=== PATIENT | female | born 1965 | race Caucasian/White ===

== ENCOUNTER → 2018-12-17 | Outpatient (CLI) | payer OTHER ==
--- NOTE | 2018-12-17 08:41 | Diagnostic Imaging Report ---
PROCEDURE: CT abdomen and pelvis without contrast. TECHNIQUE: Multiple contiguous axial images were obtained through the abdomen and pelvis without the use of intravenous contrast. Auto Exposure Controls were utilized during the CT exam to meet ALARA standards for radiation dose reduction. INDICATION: Hematuria. No prior studies are available for comparison. The lung bases are clear. No focal liver mass is identified. The gallbladder is unremarkable. Visualized pancreas and spleen are unremarkable. No adrenal mass is detected. Kidneys do not show evidence of calculi. There is no hydronephrosis identified. No definite ureteral calculi are seen. No bladder calculi are detected. The abdominal aorta is normal in caliber. No aneurysm is detected. Visualized small and large bowel loops are normal caliber. No obstruction is seen. There is a moderate amount of stool throughout the colon. No free fluid or fluid collection is identified. A cystic mass in the left adnexa is identified measuring 3.2 cm, suggestive of an ovarian cyst. The bony structures are nonacute. IMPRESSION: 1. No evidence of urinary tract calculi or hydronephrosis. 2. Left adnexal cyst, likely ovarian. This could be further evaluated with pelvic sonography for better characterization. 3. Moderate stool suggestive of constipation. No acute feature is detected. Dictated by: Dictated on workstation # [id number]
== END ==
LOC: RAD 06:46
PROVIDERS: ATTEND Urology
DX: N83.8 Other noninflammatory disorders of ovary, fallopian tube and broad ligament (principal); R31.0 Gross hematuria
CPT/HCPCS: 74176

== ENCOUNTER → 2018-12-21 | Outpatient (CLI) | payer OTHER ==
--- NOTE | 2018-12-21 13:49 | Diagnostic Imaging Report ---
PROCEDURE: US Non-OB pelvis comp/trans. TECHNIQUE: Multiple realtime grayscale images were obtained of the pelvis in various projections endovaginally. Transabdominal imaging was also performed. INDICATION: Left ovarian cyst noted on recent CT. The study is performed for further characterization. COMPARISON: Correlation is made with CT study from 12/17/2018. FINDINGS: The uterus is surgically absent. Right ovary is not visualized. Left ovary measures 5.2 x 4.2 x 3.3 cm. There is a fairly simple-appearing cyst in the left ovary measuring 4.3 x 3.4 x 3.8 cm. No internal vascularity is seen. This correlates with the cyst noted on CT. No free fluid is seen. IMPRESSION: Simple cyst in the left ovary, as described. Dictated by: Dictated on workstation # [id number]
== END ==
LOC: RAD 12:30
PROVIDERS: ATTEND Urology
DX: N83.202 Unspecified ovarian cyst, left side (principal)
CPT/HCPCS: 76830; 76856

== ENCOUNTER 2019-01-15 05:40 | Outpatient (CLI) | payer OTHER ==
[~2019-01-15] VITALS: Ht 160 cm; Wt 56.4 kg
[2019-01-15] MEDS ORDERED: MIRA50TA PO (10:46)
[2019-01-15] MEDS ORDERED: ZOLP10TA5 PO (10:46)
[2019-01-15] MEDS ORDERED: RIZA10TA23 PO (10:46)
[2019-01-15] MEDS ORDERED: LISI10TA2 PO (10:46)
[2019-01-15] MEDS ORDERED: ATOR20TA66 PO (10:46)
[2019-01-15] MEDS ORDERED: TRM50T PO ×2 (10:46→13:01)
[2019-01-15] MEDS ORDERED: LAMO100T69 PO (10:46)
[2019-01-15] MEDS ORDERED: MELO15TA14 PO (13:00)
== END 2019-01-15 10:56 | disposition home or self-care (01) ==
LOC: PREOP 05:40
PROVIDERS: ATTEND Urology
DX: Z01.818 Encounter for other preprocedural examination (principal)

== ENCOUNTER 2019-01-16 05:54 | Day surgery (SDC) | payer OTHER ==
--- NOTE | 2019-01-15 13:03 | NUR ---
CALLED [facility] IN [place] FOR A LIST OF RECENTLY FILLED MEDICATIONS. MIGUEL FILLED: 01-08-19 TRAMADOL 50MG 2 Q8H PRN (TAKES 2 AM AND PM SCHEDULED AND 2 MID DAY NEEDED) 01-08-19 AMBIEN 10MG HS 01-07-19 ATORVASTATIN 20MG HS 01-07-19 LISINOPRIL 10MG DAILY 01-06-19 MOBIC 15MG DAILY 01-04-19 MAXALT 10MG DAILY PRN Q2 HOURS MAX 30MG IN 24 HOURS 11-09-18 OXYBUTYNIN ER 5MG DAILY #60 (STATES THIS CHANGED TO MYRBETRIQ, SAMPLES) JULY 2018- LAMOTRIGINE 100MG BID #60 (NOTED PAST DUE FILL DATE, SHE STATES SHE HAD A SUPPLY ON HAND AT HOME, DOES TAKE EVERYDAY) SHE STATES DR. HO GAVE HER SAMPLES OF THE MYRBETRIQ, SHE TAKES IT DAILY. SHE DOES NOT TAKE ANYTHING OTC. Addendum: 01/15/19 at 1420 by BRANDO PEREIRA [facility] PATIENT CALLED ME BACK AT THIS TIME TO SAY SHE IS NO LONGER TAKING THE LAMICTAL. SHE STATES WHEN I CALLED HER EARLIER HER WAS LISTENING AND SHE DID NOT WANT HIM TO KNOW SHE STOPPED IT. I REMOVED IT FROM THE MED REC AT THIS TIME.
[~2019-01-16] VITALS: Ht 160 cm; Wt 56.4 kg
[2019-01-16] VITALS (21 sets, daily range): BP systolic 85–127; BP diastolic 50–71
[~2019-01-16 05:54] MED LIST: ATOR20TA66 PO; LAMO100T69 PO; LISI10TA2 PO; MELO15TA14 PO; MIRA50TA PO; RIZA10TA23 PO; TRAM50TA2 PO; ZOLP10TA5 PO
[2019-01-16] MEDS ORDERED: cefTRIAXone 1,000 MG IV (ROCEPHIN) VIAL ONE (06:35)
[2019-01-16] MEDS ORDERED: WATER (STERILE) FOR INJECTION 10 ML ONE (06:35)
[2019-01-16] MEDS ORDERED: ONDANSETRON 4 MG/2 ML (SDV) Z0FRAN IV ONE (06:45)
[2019-01-16] MEDS ORDERED: SCOPOLAMINE 1.5 MG (TRANSDERM-SCOP) PATCH TOP ONE (06:45)
[2019-01-16] MEDS ORDERED: FAMOTIDINE 20MG/2ML IV (PEPCID) IV ONE (06:45)
[2019-01-16] MEDS ORDERED: MIDAZOLAM 2 MG/2 ML (VERSED) VIAL ONE (07:00)
[2019-01-16] MEDS ORDERED: cefTRIAXone FOR IV USE 1,000 MG in WATER (STERILE) FOR INJECTION 10 ML IV ONE (07:00)
[2019-01-16] MEDS ORDERED: fentaNYL INJECTION 100 MCG/2 ML AMP ONE (07:00)
[2019-01-16] MEDS ORDERED: SCOPOLAMINE 1.5 MG (TRANSDERM-SCOP) PATCH ONE (07:04)
[2019-01-16] MEDS ORDERED: FAMOTIDINE 20MG/2ML IV (PEPCID) ONE (07:04)
[2019-01-16] MEDS ORDERED: ONDANSETRON 4 MG/2 ML (SDV) Z0FRAN ONE ×2 (07:04→07:31)
--- NOTE | 2019-01-16 07:11 | Progress Note-Pre Operative ---
Pre-Operative Progress Note H&P Reviewed The H&P was reviewed, patient examined and no changes noted. Date Seen by Provider: Jan 16, 2019 Time Seen by Provider: 07:10 Date H&P Reviewed: Jan 16, 2019 Time H&P Reviewed: 07:10 Pre-Operative Diagnosis: CYSTOCELE AND IVAN ESPERANZA HO MD Jan 16, 2019 07:11 POS
[2019-01-16] MEDS ORDERED: ESTRADIOL VAGINAL CREAM 42.5 GM (ESTRACE) VG ONE (07:15)
[2019-01-16] MEDS: LACTATED RINGERS 1,000 ML IV PRN ×2 (07:15→07:59)
[2019-01-16] MEDS ORDERED: ESTROGENS CONJ. CREAM 30 GM (PREMARIN) TUBE ONE (07:15)
[2019-01-16] MEDS ORDERED: LIDOCAINE/EPI 1%-1:100,000 (XYLOCAINE) 20ML ONE (07:16)
[2019-01-16] MEDS ORDERED: proPOfol 200 MG/20 ML (DIPRIVAN) VIAL IV ONE (07:31)
[2019-01-16] MEDS ORDERED: LIDOCAINE PF 2% 5 ML (XYLOCAINE) VIAL ONE (07:31)
[2019-01-16] MEDS ORDERED: DEXAMETHASONE 10 MG/ML (DECADRON) 1 ML VIAL ONE (07:31)
[2019-01-16] MEDS ORDERED: SEVOFLURANE (ULTANE) 15 ML INHAL SOLN ONE (08:09)
[2019-01-16] MEDS ORDERED: ROCURONIUM 10 MG/ML 5 ML SYRINGE IV ONE (08:10)
[2019-01-16] MEDS ORDERED: fentaNYL INJECTION 100 MCG/2 ML AMP IVP ONE (08:15)
[2019-01-16] MEDS ORDERED: morphine INJ 10 MG/ML 1ML (SYR OR VIAL) IVP ONE (08:15)
[2019-01-16] MEDS ORDERED: ONDANSETRON 4 MG/2 ML (SDV) Z0FRAN IVP PRN (08:15)
[2019-01-16] MEDS ORDERED: MEPERIDINE (DEMEROL) INJ 50 MG/ML IVP ONE (08:15)
[2019-01-16] MEDS ORDERED: HYDROcodone/APAP 10 MG/325 MG (LORTAB) TAB PO PRN (08:30)
--- NOTE | 2019-01-16 08:30 | Progress Note-Post Operative ---
Post-Operative Progess Note Surgeon (s)/Mathematics Academic Chair (s) Surgeon ESPERANZA HO MD Mathematics Academic Chair: NONE Pre-Operative Diagnosis CYSTOCELE AND IVAN Post-Operative Diagnosis SAME Procedure & Operative Findings Date of Procedure 01/16/19 Procedure Performed/Findings ANTERIOR REPAIR, PVS, AND CYSTOSCOPY Anesthesia Type GENERAL Estimated Blood Loss Estimated blood loss (mL): NEGLIGIBLE Specimens/Packing Specimens Removed NONE TO PATHOLOGY Packing: ESTRACE VAGINAL PACK ESPERANZA HO MD Jan 16, 2019 08:30 POS
[2019-01-16] MEDS ORDERED: lisINopril 10 MG (PRINIVIL) TABLET PO SCH (09:00)
--- NOTE | 2019-01-16 09:30 | NUR ---
JESUS ROSALES admitted to room 3306-1, with an admitting diagnosis of ANTERIOR REPAIR WITH CYSTO AND PUBOVAG SLING, on 01/16/19 from [facility] via , accompanied by .JESUS ROSALES introduced to surroundings, call light, bed controls, phone, TV, temperature control, lights, meal times, smoking policy, visitor policy, side rail policy, bathrooms and showers. Patient Rights given to patient in the handbook.JESUS ROSALES verbalizes understanding that [facility] is not responsible for the loss or damage to any personal effects or valuables that are kept in the patients posession during their hospitalization. The following Patient Care Plans were discussed with the : Discharge Planning, ,, and . JESUS ROSALES verbalizes understanding of Interdisciplinary Patient Education. Patient and/or family were informed about the Rapid Response Team and its purpose.
--- NOTE | 2019-01-16 09:35 | NUR ---
INITIAL ASSESSMENT COMPLETED, VSS, PT ALERT, AWAKE SEE INTERVENTIONS FOR DETAILED ASSESSMENTS, PLAN OF CARE EXPLAINED TO PT AND S/O, BOTH VERBALIZE UNDERSTANDING, NO QUESTIONS OR CONCERNS NOTED, WILL MONITOR CLOSELY.
--- NOTE | 2019-01-16 09:39 | Anesthesia-General Post-Op ---
General Patient Condition Mental Status/LOC: Same as Preop Cardiovascular: Satisfactory Nausea/Vomiting: Absent Respiratory: Satisfactory Pain: Controlled Complications: Absent Post Op Complications Complications None Follow Up Care/Instructions Patient Instructions None needed. Anesthesia/Patient Condition Patient Condition Patient is doing well, no complaints, stable vital signs, no apparent adverse anesthesia problems. No complications reported per nursing. DHAVAL RODRIGUEZ CRNA Jan 16, 2019 09:38 POS
--- NOTE | 2019-01-16 09:45 | NUR ---
O2 BY NASAL CANNULA APPLIED AT 2LITERS TO KEEP SPO2 ABOVE 90%
--- NOTE | 2019-01-16 10:15 | NUR ---
CARE ASSUMED OF THIS PT.
--- NOTE | 2019-01-16 10:30 | NUR ---
SLEEPING WITH EYES CLOSED. AWAKENS EASILY. S.O. AT BEDSIDE. CONTINUOUS SPO2 MONITORING AND FREQUENT VS. O2 ON AT 1.5L/M/NC. GOOD URINE OUTPUT. TAIL OFF VAGINAL PACK NOTED. NO BLEEDING AROUND PACK.
[2019-01-16] MEDS ORDERED: SUMAtriptan 50 MG (IMITREX) TAB PO PRN (10:45)
--- NOTE | 2019-01-16 11:30 | NUR ---
VSS. NO CHANGE IN STATUS. GOOD URINE OUTPUT. REFUSING HER HOME MEDS AT THIS TIME. STATES DOESN'T WANT TO EAT AT THIS TIME. S.O. AT BEDSIDE RESTING WELL.
--- NOTE | 2019-01-16 12:45 | NUR ---
ASSISTED TO TURN PT TO LEFT SIDE. BACK RUB GIVEN R/T C/O BACK HURTING. MOVES WELL.
--- NOTE | 2019-01-16 13:30 | NUR ---
RESTING WELL. S.O. RESTING ON COUCH. GOOD URINE OUTPUT. VSS.
--- NOTE | 2019-01-16 14:00 | NUR ---
BACK TO ROOM AIR. VSS. MAINTAINING SPO2 WELL.
[2019-01-16] MEDS: LACTATED RINGERS 1,000 ML IV SCH ×2 (14:04→21:49)
[2019-01-16] MEDS: MELOXICAM 7.5 MG (MOBIC) TABLET PO SCH (14:06)
--- NOTE | 2019-01-16 16:45 | NUR ---
SPOUSE LEFT FOR THE NIGHT. PT. SITTING UP IN THE BED WATCHING TV. DENIES PAIN. VAGINAL PACKING IN PLACE. TAKING FLUIDS WELL.
--- NOTE | 2019-01-16 18:08 | OPERATIVE REPORT ---
DATE OF SERVICE: 01/16/2019 PREOPERATIVE DIAGNOSES: Cystocele and stress urinary incontinence and overactive bladder. POSTOPERATIVE DIAGNOSES: Cystocele and stress urinary incontinence and overactive bladder. OPERATION PERFORMED: Anterior repair with pubovaginal sling and cystoscopy. SURGEON: Noe Ho MD ANESTHESIA: General. COMPLICATIONS: None. DESCRIPTION OF PROCEDURE: Under satisfactory general anesthesia, the patient in extended lithotomy position, genitalia, abdomen and thigh as well as vaginal prep was performed and prepped and draped in the usual sterile fashion. Catheter was inserted draining clear urine. The anterior vaginal wall was infiltrated with lidocaine and epinephrine. An incision was made vertically in the anterior vaginal wall. Mucosa was dissected off the underlying tissues exposing the fascia. Dissection was carried on both sides toward the pubic arch. The fascia was approximated with interrupted 2-0 Vicryl giving excellent support to the bladder. Then, the pubovaginal sling Solyx device was passed on both sides using the described technique. The sling was sitting nicely under the mid urethra with no tension or twist and passage of a hemostat easily between it and the underlying tissue. I removed the Glaser catheter and performed cystoscopy to confirm the integrity of the bladder, ureters and urethra with no foreign body and presence of the sling under the mid urethra. I left the bladder half full to perform a manual Valsalva maneuver after removing the scope. There was some leakage, so I tightened the sling more and at the sling, there was no more leakage. The catheter was then inserted draining clear fluid. The excess vaginal mucosa was excised. Then, the mucosa was approximated with running 2-0 Vicryl. Estrace vaginal pack was inserted. Estimated blood loss was negligible. Needle, sponge and instrument counts correct x2. The patient tolerated the procedure and anesthesia well and was sent to recovery room in stable condition. Job ID: [id number] DocumentID: [id number] Dictated Date: 01/16/2019 08:37:29 Customer Service Operator Date: 01/16/2019 18:07:59 Dictated By: NOE HO MD
--- NOTE | 2019-01-16 18:30 | NUR ---
CONTINUES TO DO WELL. TOOK MOST OF REGULAR DIET. WATCHING TV WITH NO COMPLAINTS.
--- NOTE | 2019-01-16 20:10 | NUR ---
pt resting in bed. assessment completed. pt denies any needs at this time. will continue to monitor.
[2019-01-16] MEDS ORDERED: FLU QUADRIvalent (5+ YOA) 2019-2020 (AFLURIA) 0.5 ML IM ONE (20:15)
[2019-01-16] MEDS ORDERED: ZOLPIDEM 5 MG (AMBIEN) TAB PO SCH (21:00)
--- NOTE | 2019-01-16 22:09 | NUR ---
PT assisted to the bathroom to perform pm care. pt assisted back to bed. lights turned down. pt is going to rest. pt requesting scd's be removed for a short period. pt denies any further needs. will continue to monitor.
--- NOTE | 2019-01-17 01:00 | NUR ---
Report received from MIREYA Mosher. Assumed care at this time.
[2019-01-17 02:25] VITALS: BP 102/53
[2019-01-17 06:00] VITALS: BP 99/50
--- NOTE | 2019-01-17 06:00 | NUR ---
Vaginal packing et womack catheter removed at this time. Pt tolerated well. IVF stopped. IV site saline locked.
[2019-01-17 08:00] VITALS: BP 88/50
[2019-01-17] MEDS ORDERED: LEVOFLOXACIN 250 MG/50 ML IVPB 50 ML IV SCH (08:30)
[2019-01-17] MEDS: MELOXICAM 7.5 MG (MOBIC) TABLET PO SCH (08:56)
[2019-01-17 12:00] VITALS: BP 95/57
--- NOTE | 2019-01-17 12:11 | Progress Note - Urology ---
Progress Note-Urology Progress Notes/Assess & Plan Progress/Assessment & Plan VOIDING WELL. FEELS EMPTYING WELL. DRY. HAPPY. DOING AND FEELING WELL. DISCHARGE INSTRUCTIONS GIVEN. CHECK PVR BLADDER SCAN PRIOR TO THAT Final Diagnosis CYSTOCELE AND INCONTINENCE ESPERANZA HO MD Jan 17, 2019 12:11 POS
--- NOTE | 2019-01-17 14:15 | NUR ---
JESUS ROSALES demonstrates understanding of discharge instructions and accurately returns instructions upon questioning. Copy of Post-Discharge Instructions and Medication Discharge Instructions given to patient. JESUS ROSALES is able to manage continuing needs after discharge. Patients belongings returned to patient. Skin dry and intact; no breakdown noted. Patient discharged from 3306-1 on 01-17-19 at 1415. JESUS ROSALES left floor via ambulation, accompanied by staff and s/o.
== END 2019-01-17 14:15 | disposition home or self-care (01) ==
LOC: SDC 05:54 → WS 09:48 → SDC 01-17 14:15
PROVIDERS: ATTEND Urology
DX: N81.10 Cystocele, unspecified (principal); N39.3 Stress incontinence (female) (male); N32.81 Overactive bladder; M79.7 Fibromyalgia; M54.31 Sciatica, right side; I10 Essential (primary) hypertension; E78.5 Hyperlipidemia, unspecified; G62.9 Polyneuropathy, unspecified; Z88.8 Allergy status to other drugs, medicaments and biological substances; Z90.710 Acquired absence of both cervix and uterus; Z79.899 Other long term (current) drug therapy
CPT/HCPCS: 87081; 94664